=== PATIENT | female | born 1970 | race Hispanic/Latino ===

== ENCOUNTER → 2024-06-23 | Outpatient (CLI) | payer OTHER ==
--- NOTE | 2024-06-23 13:53 | HMCIMG ---
FOOT LIMITED 2VWS RT REASON: CELLULITIS LEG/LEG PAIN/OSTEOMYELITIS TECHNIQUE: 2 views were obtained. FINDINGS: There is no evidence of fracture or dislocation. There is no joint effusion. The soft tissues appear unremarkable. There is no evidence of a radiopaque foreign body. There is surgical hardware in the distal tibia and fibula from remote previous fracture fixation. There is a heel spur present. IMPRESSION: No acute findings.
--- NOTE | 2024-06-23 13:54 | HMCIMG ---
ANKLE 2VWS RT REASON: CELLULITIS LEG/LEG PAIN/OSTEOMYELITIS TECHNIQUE: 2 views were obtained. FINDINGS: There is surgical hardware in place from prior fracture fixation, plate and screw in the distal fibula and a single screw in the tibia. Bones appear otherwise unremarkable. There are no fractures. There is no evidence of osteomyelitis. IMPRESSION: No acute findings.
--- NOTE | 2024-06-23 13:55 | HMCIMG ---
TIBIA/FIBULA 2VWS RT REASON: CELLULITIS LEG/LEG PAIN/OSTEOMYELITIS TECHNIQUE: 2 views were obtained. FINDINGS: There are surgical hardware distal fibula and tibia, hardware appears intact. There are 2 screw holes in the mid tibia probably from remote previous external fixator. There is no evidence of ostial myelitis. Bones appear otherwise unremarkable. Soft tissues appear normal. IMPRESSION: No acute findings.
== END | disposition home or self-care (01) ==
LOC: RAH 11:45
PROVIDERS: ATTEND Internal Medicine
DX: M86.9 Osteomyelitis, unspecified (principal); L03.119 Cellulitis of unspecified part of limb; M79.604 Pain in right leg; I73.9 Peripheral vascular disease, unspecified
CPT/HCPCS: 73590; 73600; 73620